=== PATIENT | male | born 1930 | race Caucasian/White ===

== ENCOUNTER 2017-06-02 15:31 | Observation (INO) | payer MEDICARE, OTHER ==
[~2017-06-02] VITALS: Ht 182.9 cm; Wt 98.8 kg
[2017-06-02] VITALS (7 sets, daily range): BP systolic 130–170; BP diastolic 90–95; PULSE 66–76; RESP 16–24; O2SAT 93–94
[2017-06-02] MEDS ORDERED: Alum-Mag Hydrox-Simeth 30 mL Suspension PO PRN (19:10)
[2017-06-02] MEDS ORDERED: Senna-Docusate 8.6-50 mg Tablet PO PRN (19:10)
[2017-06-02] MEDS ORDERED: Atropine 1 mg/10 mL (Code) Syringe IVPUSH PRN (19:10)
[2017-06-02] MEDS ORDERED: Ondansetron 2 mg/mL 2 mL Inj IVPUSH PRN (19:10)
[2017-06-02] MEDS ORDERED: Polyethylene Glycol (PEG) 17 Gm Powder PO PRN (19:10)
[2017-06-02 19:35] LABS: BASOPHILS % (AUTO) 0.6 % (0-3); EOSINOPHILS % (AUTO) 15.1 % (0-5); MONOCYTES % (AUTO) 8.1 % (4-12); Mean Corpuscular Hemoglobin 30.8 pg (27.0-35.0); Mean Corpuscular Volume 91.3 fL (81-100); NEUTROPHILS % (AUTO) 64.9 % (40-74); Platelet Count 126 bil/L (150-400)
[2017-06-02 19:56] LABS: INR 2.19 ratio
[2017-06-02 20:10] LABS: TROPONIN T 0.01 ug/L (0.0-0.011)
[2017-06-02 20:21] LABS: Magnesium 1.8 mg/dL (1.6-2.6)
--- NOTE | 2017-06-02 20:45 | PCM.HPMED ---
Subjective Date of Service Jun 02, 2017 Primary Provider: Admitting Physician: Luis Alberto Eagle MD Primary Care Physician: Nopsharona Attending Physician: Luis Alberto Eagle MD Admit Status: From the Emergency Department, 23-Hour Observation, [facility] Telemetry Chief Complaint: Chest pain. History of Present Illness: Raudel Neumann is an 86-year-old male with past medical history significant for CAD status post [place] with coronary angioplasty, hypertension, hyperlipidemia, atrial fibrillation on warfarin, obstructive sleep apnea on CPAP with oxygen, and aortic stenosis status post porcine aortic valve replacement who was a direct admit from [facility] for unstable angina. The patient reports that he awoke with chest pain yesterday morning that lasted 2-3 hours and resolved spontaneously on its own. He again woke with chest pain this morning that radiated to his left arm and left shoulder blade which prompted him to go to the emergency department. He reports that the quality of the chest pain is an ache and pressure sensation. The chest pain is substernal and not reproducible with palpation. He did not have accompanying shortness of breath, diaphoresis, nausea, vomiting, lightheadedness, dizziness, or vision changes. He reports that the chest pain resolved with 1 dose of sublingual nitroglycerin 0.4 mg and aspirin 324 mg. He was also given 1 L of normal saline , metoprolol tartrate 50 mg 1, and atorvastatin 40 mg 1. He currently does not have any chest pain. He denies headache, vision changes, shortness of breath, chest pain, abdominal pain, nausea, vomiting, fever, chills, dysuria, constipation or diarrhea. He endorses chronic cough that is at his baseline. He recently had constipation last several days which is abnormal for him. Vital signs upon admission: Temperature 37.1. Pulse 69. Respiratory rate 16. Blood pressure 167/92. Pulse ox 93% on 2 L nasal cannula. PCP is . Medical Scheduler is Dr. Alba. . Review of Systems: A comprehensive review of systems was conducted with the patient and found to be negative except as above in the History of Present Illness. . Allergies Coded Allergies: No Known Allergies (Unverified , 06/02/17) Home Medications Advair one puff twice a day. Atorvastatin 80 mg daily at bedtime. Flonase one spray intranasally every day. Ipratropium 2 puffs inhaled twice a day. Loratadine 10 mg daily as needed for allergies. Montelukast 10 mg every afternoon. Multivitamin 1 tab daily. Vitamin D3/folic acid 3775 units/1 mg 1 capsule daily. Warfarin 5 mg on Tuesday and . Warfarin 7.5 mg Tuesday, Tuesday, Tuesday, Tuesday, and Tuesday. . PMH 1. CAD status post [place] with coronary angioplasty. 2. Hypertension now off of antihypertensives due to what sounds like symptomatic orthostasis. 3. Hyperlipidemia. 4. Obstructive sleep apnea on CPAP. 5. Atrial fibrillation on warfarin. 6. COPD. 7. Aortic stenosis status post porcine aortic valve replacement. 8. Osteoarthritis. . Surgical History 1. Coronary angioplasty. 2. Bilateral cataract extraction. 3. Bilateral retinal surgery. 4. Bilateral knee replacement. . Family History Mother from Alzheimer's dementia. Father who of gunshot wound. He has 3 brothers and one sister who are all healthy. . Social History Hx Alcohol Use: Yes (1-2 glasses of red wine 2-3x/week) Additional Information The patient is 9 years. He has previously . He has 1 son and 1 daughter who are healthy. He is a retired [employer] that 23 years. 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 . Exam Vital Signs Vital Signs Label Value Date Time Patient Temperature 37.1 degrees C 06/02/171912 Temperature Source Oral 06/02/171912 Pulse 69 06/02/171912 Respiratory Rate 16 bpm 06/02/171912 Blood Pressure Assessment 167/92 (117) 06/02/171912 Location Left Arm Source Automatic Cuff Position Lying Bedside Pulse Oximetry 93 % 06/02/171914 Item Value Date Time Oxygen Delivery Method Nasal Cannula 06/02/171914 Oxygen Flow Rate 2.00 L/min 06/02/171914 Exam General: Older gentleman lying in bed and in no acute distress, hard of hearing , well-developed, well-nourished, appropriately interactive HEENT: Normocephalic, atraumatic. External ears without defect. Pupils equal, round, and reactive to light. Anicteric sclerae, moist conjunctivae, and no lid lag. Oropharynx free of erythema and cobble stoning with moist mucosa. Neck: Supple with full range of motion. No jugular venous distension. No bruits. No lymphadenopathy or thyromegaly. Cardiovascular: Irregularly irregular without murmurs, rubs, or gallops appreciated Pulmonary: Clear to auscultation bilaterally with fine crackles at right base. No wheezes, or rhonchi. Normal respiratory effort with no use of accessory muscles. Abdomen: Soft, obese, nontender, nondistended, bowel sounds present. No hepatosplenomegaly or masses appreciated. Extremities: No clubbing, cyanosis, or edema. Stasis dermatitis with small scattered bullae bilaterally. Skin: Normal temperature, turgor, and texture; no rash, ulcers, or subcutaneous nodules appreciated. Neurological: Cranial nerves grossly intact. Normal muscle strength, tone, and bulk. Reflexes, coordination, and sensory function within normal limits. No known gait impairment. Psychiatric: Normal mood and affect. Alert and oriented to person, place, and time. . Lab and Diagnostics Labs Item Value Date Time Prothrombin Time 23.8 sec H 06/02/171929 Prothromb Time International Ratio 2.19 ratio 06/02/171929 Item Value Date Time Calcium Level 8.6 mg/dL 06/02/171929 Magnesium Level 1.8 mg/dL 06/02/171929 Total Bilirubin 0.9 mg/dL 06/02/171929 Aspartate Amino Transf (AST/SGOT) 28 U/L 06/02/171929 Alanine Aminotransferase (ALT/SGPT) 22 U/L 06/02/171929 Alkaline Phosphatase 113 U/L 06/02/171929 Troponin T 0.010 ug/L 06/02/171929 Total Protein 7.4 g/dL 06/02/171929 Albumin 2.9 g/dL L 06/02/171929 Thyroid Stimulating Hormone (TSH) 2.580 uIU/mL 06/02/171929 Item Value Date Time White Blood Count 10.4 th/mm3 H 06/02/171929 Red Blood Count 5.06 mil/mm3 06/02/171929 Hemoglobin 15.6 g/dL 06/02/171929 Hematocrit 46.2 % 06/02/171929 Mean Corpuscular Volume 91.3 fL 06/02/171929 Mean Corpuscular Hemoglobin 30.8 pg 06/02/171929 Mean Corpuscular Hemoglobin Concent 33.8 % 06/02/171929 Red Cell Distribution Width 15.5 % H 06/02/171929 Platelet Count 126 jennifer/L L 06/02/171929 Neutrophils (%) (Auto) 64.9 % 06/02/171929 Lymphocytes (%) (Auto) 10.7 % L 06/02/171929 Monocytes (%) (Auto) 8.1 % 06/02/171929 Eosinophils (%) (Auto) 15.1 % H 06/02/171929 Basophils (%) (Auto) 0.6 % 06/02/171929 X-Rays, CTs and MRIs Chest x-ray performed at [facility]: IMPRESSION: No acute disease. Dictated by: Arun Martin M.D. on 06/02/2017 at 1131 . 12-lead ECG EKG performed at [facility]: Atrial fibrillation, heart rate 94, normal axis, normal R-wave progression, no pathological Q waves or acute ischemic changes such as ST elevation or depression. . Assessment & Plan Raudel Neumann is an 86-year-old male with past medical history significant for CAD status post [place] with coronary angioplasty, hypertension, hyperlipidemia, atrial fibrillation on warfarin, obstructive sleep apnea on CPAP with oxygen, and aortic stenosis status post porcine aortic valve replacement who was a direct admit from [facility] for unstable angina. 1. Acute chest pain, not present on admission. Resolved. - The patient presented with unstable angina at rest with radiation to left arm and left shoulder blade,without nausea, diaphoresis, shortness of breath, lightheadedness or dizziness. - Cardiac risk factors include: CAD status post [place] with coronary angioplasty, hypertension, hyperlipidemia, obesity, former smoker, RAMSES on CPAP, age, and gender. - EKG performed at [facility] demonstrated atrial fibrillation without acute ischemic changes. - Troponin I was 0.017 at [facility]. Initial troponin 0.010. Continue serial troponins x 3. - Chest x-ray are formed [facility] did not demonstrate any acute cardiopulmonary process, as above. - Continue aspirin 81 mg daily and atorvastatin 80 mg daily at bedtime. - Fasting lipid panel ordered for tomorrow morning. - Ordered exercise stress test with Maddison backup. - Ordered echocardiogram, pending. Chronic problems: 2. CAD status post [place] with coronary angioplasty, present on admission. Stable. - Continue aspirin 81 mg daily and atorvastatin 80 mg daily at bedtime. 3. Hypertension, present on admission. Stable. - The patient reports he is now off of antihypertensives for what sounds like symptomatic orthostasis. 4. Hyperlipidemia, present on admission. Stable. - Continue atorvastatin 80 mg daily at bedtime. 5. Obstructive sleep apnea on CPAP, present on admission. Stable. 6. Atrial fibrillation on warfarin, present on admission. Stable. - Continue warfarin with dosing per pharmacist. 7. COPD, present on admission. Stable. - Continue Advair one puff twice a day, duo nebs twice a day, and Accu nebs every 4 hours as needed for shortness of breath, . 8. Aortic stenosis status post porcine aortic valve replacement, present on admission. Stable. - Continue warfarin with dosing per pharmacist. 9. Osteoarthritis, present on admission. Stable. - Ordered acetaminophen as needed 10. Seasonal allergies, present on admission. Stable. - Continue loratadine 10 mg daily as needed for allergies, montelukast 10 mg every afternoon, and Flonase one spray intranasally every day. PRN antiemetics: Zofran and Maalox. PRN bowel regimen: Senna and MiraLAX. PRN analgesics: Tylenol. Patient is admitted under observation status with expected length of stay less than 2 midnights due to severity of presenting symptoms, risk of adverse event, and complexity of treatment plan. . VTE Prophylaxis: Theraputic Anticoag with Warfarin Resuscitation Status: CPR: Attempt Resuscitation Attending Statement The patient was seen and examined together with house staff on 06/02/2017 and I agree with the history, exam and plan as outlined in the note above. Evonne Sparrow DO Jun 02, 2017 19:09 Zaria Hough DO Jun 03, 2017 01:23 Evonne Sparrow DO Jun 02, 2017 19:09
[2017-06-02] MEDS ORDERED: MULT-666 PO (21:00)
[2017-06-02] MEDS ORDERED: VITA1CAP PO (21:00)
[2017-06-02] MEDS ORDERED: ATRINH INH (21:00)
[2017-06-02] MEDS ORDERED: LORA10CA9 PO (21:00)
[2017-06-02] MEDS ORDERED: FLUT9.9S NS (21:00)
[2017-06-02] MEDS ORDERED: WARF5TAB7 PO (21:00)
[2017-06-02] MEDS ORDERED: ADV250INH IH (21:00)
[2017-06-02] MEDS ORDERED: WARF7.5T4 PO (21:00)
[2017-06-02] MEDS ORDERED: ATOR80TA PO (21:00)
[2017-06-02] MEDS ORDERED: BRIM5DRO10 BOTH_EYES (21:00)
[2017-06-02] MEDS ORDERED: MONT10TA20 PO (21:00)
--- NOTE | 2017-06-02 21:11 | PCM.CONPHA ---
Assessment/Plan Assessment/Plan ANTICOAGULATION MANAGEMENT BY PHARMACY -INDICATION: AFIB -HOME DOSE: 5 MG SUN/THUR, 7.5 MG AOD -CONCURRENT ANTICOAGULATION: NONE -COAG TRENDS: Date INR 2.19 -[id number] SCORE: 4 PLAN: Patient is within INR goal range, will continue with home dose. Pharmacy appreciates consult and will continue to monitor. THANKS! Brigida Carolina PharmD Jun 02, 2017 21:10
[2017-06-02] MEDS ORDERED: Albuterol 2.5 mg/3 mL Inhalation Solution NEB PRN (21:55)
[2017-06-02] MEDS ORDERED: Influenza (Adult) Vaccine 0.5 mL Syringe IM ONE (23:00)
[2017-06-02] MEDS: Sodium Chloride LOK Flush 10 mL Syringe IVFLUSH SCH (23:53)
[2017-06-03] VITALS (14 sets, daily range): BP systolic 120–188; BP diastolic 68–117; PULSE 59–86; RESP 18–27; O2SAT 91–95
[2017-06-03] MEDS ORDERED: Heparin 5,000 Unit/mL Inj SUBQ SCH (00:30)
[2017-06-03 02:14] LABS: APPEARANCE,URINE CLEAR (CLEAR,HAZY); COLOR,URINE DARK YELLOW (YELLOW); OCCULT BLOOD,URINE TRACE (NEGATIVE)
[2017-06-03 02:33] LABS: BASOPHILS % (AUTO) 0.8 % (0-3); EOSINOPHILS % (AUTO) 17.7 % (0-5); MONOCYTES % (AUTO) 8.2 % (4-12); Mean Corpuscular Hemoglobin 30.6 pg (27.0-35.0); Mean Corpuscular Volume 90.4 fL (81-100); NEUTROPHILS % (AUTO) 61.3 % (40-74); Platelet Count 145 bil/L (150-400)
[2017-06-03 02:49] LABS: INR 1.89 ratio
[2017-06-03 04:15] LABS: Creatine Kinase 80 U/L (21-232)
[2017-06-03] MEDS ORDERED: Labetalol 5 mg/mL 20 mL Inj IV ONE (04:20)
[2017-06-03] MEDS ORDERED: Enalaprilat 1.25 mg/mL 2 mL Inj IVPUSH ONE (07:50)
[2017-06-03] MEDS: Albuterol-Ipratropium 3 mL Inhalation Solution NEB SCH ×2 (08:30→20:30)
[2017-06-03] MEDS ORDERED: Influenza (Adult) Vaccine 0.5 mL Syringe IM ONE (08:30)
[2017-06-03] MEDS: Fluticasone 0.05% 15 Spray/2 Gm 16 Gm Nasal Spray NASAL SCH (08:42)
[2017-06-03] MEDS: Sodium Chloride LOK Flush 10 mL Syringe IVFLUSH SCH ×3 (08:42→23:43)
[2017-06-03] MEDS: Brimonidine 0.2% 5 mL Ophthalmic Solution BOTH_EYES SCH ×2 (08:42→21:15)
[2017-06-03 08:55] LABS: Creatine Kinase 75 U/L (21-232)
--- NOTE | 2017-06-03 10:58 | PCM.PHAPRO ---
Progress Date of Service: Jun 03, 2017 Warfarin dosing Date Jun 03-May INR 2.19 1.89 INR change -0.3 Warf Dose 5 MG 7.5MG Edel Christensen PharmD Jun 03, 2017 10:58
[2017-06-03] MEDS: Fluticasone-Salmererol 250-50 Inhaler INHALATION SCH ×2 (12:25→21:15)
--- NOTE | 2017-06-03 15:13 | PCM.PNMED ---
Subjective Date of Service Jun 03, 2017 Subjective Today that patient states that he is better compared to admission, but still feels some degree of chest pain and tightness. He states that it is down about 30-40% compared to admission but remains quite uncomfortable. He has not other complaints at this time beyond back pain from the hospital bed. No significant overnight events. Exam Vital Signs Vital Sign - Last Date Time Temp Pulse Resp B/P Pulse Ox O2 Delivery O2 Flow Rate FiO2 06/03/17 12:33 36.5 63 20 91 Nasal Cannula 2.00 Intake and Output 06/02/17 06/02/17 06/03/17 Cumulative From/Thru 14:58 22:58 06:58 06/02/17 19:17 - 06/03/17 05:34 Intake Total 200 ml 200 ml Output Total 500 ml 500 ml Balance -300 ml -300 ml Intake Oral 200 ml 200 ml Output Urine Total 500 ml 500 ml # Voids 1 1 # Bowel Movements 1 1 Exam Gen: A/O x3 pleasant cooperative elderly gentleman in mild acute distress secondary to chest tightness Neck: Supple, non tender, ROM appropriate for age, no JVD HEENT: Lips slightly dusky to blue colored, PERRL, EOMI, no scleral icterus CV: RRR, soft systolic murmur best heard at right sternal border, no rubs or gallops Abd: Soft, non tender, no rebound guarding or masses Extr: No clubbing or cyanosis in extremities, mild BL LE edema Neuro: CN 2-12 grossly intact, no focal neurologic deficit Psych: Pleasant and appropriate mood and effect . IVs and Medications Medications Reviewed: Medications were reviewed in detail Lab and Diagnostics Item Value Date Time Red Blood Count 5.23 mil/mm3 06/03/17224 Mean Corpuscular Volume 90.4 fL 06/03/17224 Mean Corpuscular Hemoglobin 30.6 pg 06/03/17224 Mean Corpuscular Hemoglobin Concent 33.8 % 06/03/17224 Red Cell Distribution Width 15.6 % H 06/03/17224 Neutrophils (%) (Auto) 61.3 % 06/03/17224 Lymphocytes (%) (Auto) 11.5 % L 06/03/17224 Monocytes (%) (Auto) 8.2 % 06/03/17224 Eosinophils (%) (Auto) 17.7 % H 06/03/17224 Basophils (%) (Auto) 0.8 % 06/03/17224 Estimat Glomerular Filtration Rate 76 mL/min 06/03/17224 Calcium Level 8.8 mg/dL 06/03/17224 Total Creatine Kinase 75 U/L 06/03/17805 Creatine Kinase MB 2.9 ng/mL 06/03/17805 Troponin T 0.010 ug/L 06/03/17 08 Triglycerides Level 98 mg/dL 06/03/17224 Cholesterol Level 104 mg/dL 06/03/17224 LDL Cholesterol, Calculated 48.400 mg/dL 06/03/17224 VLDL Cholesterol 19.600 mg/dL 06/03/17224 HDL Cholesterol 36 mg/dL 06/03/17224 Cholesterol/HDL Ratio 2.89 06/03/17224 Result Diagram: 06/03/1722406/03/17224 Microbiology Urine culture pending X-Rays, CTs and MRIs Chest x-ray performed at [facility]: IMPRESSION: No acute disease. Dictated by: Arun Martin M.D. on 06/02/2017 at 1131 . 12-lead ECG EKG performed at [facility]: Atrial fibrillation, heart rate 94, normal axis, normal R-wave progression, no pathological Q waves or acute ischemic changes such as ST elevation or depression. . Assessment & Plan Raudel Neumann is an 86-year-old male with past medical history significant for CAD status post [place] with coronary angioplasty, hypertension, hyperlipidemia, atrial fibrillation on warfarin, obstructive sleep apnea on CPAP with oxygen, and aortic stenosis status post porcine aortic valve replacement who was a direct admit from [facility] for unstable angina. He subsequently has had negative serial Trop, and will undergo a stress test to evaluate if further intervention will be necessary. Acute chest pain, not present on admission. Improved - The patient presented with unstable angina at rest with radiation to left arm and left shoulder blade,without nausea, diaphoresis, shortness of breath, lightheadedness or dizziness. - Cardiac risk factors include: CAD status post [place] with coronary angioplasty, hypertension, hyperlipidemia, obesity, former smoker, RAMSES on CPAP, age, and gender. - EKG performed at [facility] demonstrated atrial fibrillation without acute ischemic changes. - Serial troponins x 3 negative - Chest x-ray are formed [facility] did not demonstrate any acute cardiopulmonary process, as above. - Continue aspirin 81 mg daily and atorvastatin 80 mg daily at bedtime. - Fasting lipid panel unremarkable - Ordered exercise stress test with Maddison backup. Chronic problems: CAD status post [place] with coronary angioplasty, present on admission. Stable. - Continue aspirin 81 mg daily and atorvastatin 80 mg daily at bedtime. Hypertension, present on admission. Stable. - The patient reports he is now off of antihypertensives for what sounds like symptomatic orthostasis. - Given single dose of Vasotec for HTN - Will re-evaluated need for corrective meds after stress Hyperlipidemia, present on admission. Stable. - Continue atorvastatin 80 mg daily at bedtime. Obstructive sleep apnea on CPAP, present on admission. Stable. - Continue to encourage use of CPAP Atrial fibrillation on warfarin, present on admission. Stable. - Continue warfarin with dosing per pharmacist. COPD, present on admission. Stable. - Continue Advair one puff twice a day, duo nebs twice a day, and Accu nebs every 4 hours as needed for shortness of breath, . Aortic stenosis status post porcine aortic valve replacement, present on admission. Stable. - Continue warfarin with dosing per pharmacist. Osteoarthritis, present on admission. Stable. - Ordered acetaminophen as needed Seasonal allergies, present on admission. Stable. - Continue loratadine 10 mg daily as needed for allergies, montelukast 10 mg every afternoon, and Flonase one spray intranasally every day. Disposition: Patient will likely be able to DC home tomorrow pending results of his Stress test, should there prove to be a correctible defect he will likely DC on 06/05/17 following cath procedure. Pain Evaluation: Adequate Pain Control GI Prophylaxis: Not indicated VTE Prophylaxis: Theraputic Anticoag with Warfarin Resuscitation Status: CPR: Attempt Resuscitation Time spent 20 minutes Attending Statement Patient has been seen and examined by myself with medical research associate and agree with above history, physical, assessment and plan. Tello Alvarez DO Jun 03, 2017 15:13 Lana Landeros MD Jun 04, 2017 07:01
[2017-06-03] MEDS ORDERED: Warfarin 5 MG, Warfarin 2.5 MG PO ONE ×2 (17:00)
--- NOTE | 2017-06-03 19:24 | DRSVH ---
[facility] [address] [place] [address] Echocardiogram Report Name: ЕЛЕНА PATEL Date: 06/03 Height: 72 in Hospital Exam Location: [facility] Weight: 220 lb Gender: Male BSA: 2.2 m2 : 1930 Age: 86 yrs BP: 177/88 mm Hg Reason For Study: Chest Pain Ordering Physician: HOSPITALIST [facility] Performed By: Lauren Soler Referring Physician: Bernice Bairdist Interpretation Summary Afib with controlled ventricular response. Normal LV size; mild concentric LVH; normal wall motion and LV systolic function. EF is 50-55%. There is severe RV enlargement with mild-moderately reduced RV function. Estimated PA systolic pressure is 54-59 mm Hg assuming RA pressure of 15-20 mm Hg. There is moderate MAC with mild associated MR. Aortic valve is replaced with a stented bioprosthesis, which is functionibng normally. There is no prior study available for comparison. Procedure: A two-dimensional transthoracic echocardiogram with color flow and Doppler was performed. The study quality was technically adequate. There is no prior echocardiogram noted for this patient. Most of the acoustic windows were suboptimal, but the best imaging was obtained from the parasternal window. The patient was in atrial fibrillation with controlled ventricular rate during the exam. Left Ventricle: The left ventricle is normal in size. Left ventricular wall thickness is mildly increased. The ejection fraction is estimated to be 50- 55%. Diastolic function could not be accurately assessed due to atrial fibrillation. Right Ventricle: The right ventricle is moderate to severely dilated. Right ventricular systolic function is mild to moderately reduced. Atria: Both atria are severely dilated. (visual estimate, unable to accurately measure due to suboptimal imaging window). The interatrial septum is intact with no evidence for an atrial septal defect. Mitral Valve: The mitral valve leaflets are slightly calcified. There is mild to moderate mitral annular calcification. There is mild mitral regurgitation. Aortic Valve: There is a bioprosthetic aortic valve. The aortic valve mean gradient is 6 mmHg. The peak aortic velocity is 1.69 m/sec. There is mild aortic regurgitation. Tricuspid Valve: The tricuspid valve leaflets are thin and pliable. There is moderate to severe tricuspid regurgitation. The right ventricular systolic pressure is estimated at 54 mmHg assuming a right atrial pressure of 15 mm Hg. Pulmonic Valve: The pulmonic valve is not well seen, but is grossly normal. There is mild pulmonic regurgitation. Great Vessels: The aortic root is normal size. The ascending aorta is mild- moderately enlarged. Pericardium/ Pleura There is no pericardial effusion. There is an anterior echo-free space consistent with a fat pad. There is no pleural effusion. MMode/2D Measurements & Calculations LVIDd: 4.9 cm IVC diam: 3.2 cm LVIDs: 3.4 cm FS: 29.3 % IVSd: 1.3 cm LVPWd: 1.3 cm LVOT diam: 2.1 cm LV sandoval. diameter/BSA (cm/m^2): 2.2 asc Aorta Diam: 4.3 cm LV sys. diameter/BSA (cm/m^2): 1.5 Doppler Measurements & Calculations Ao V2 max: 169.3 cm/sec TR max rogelio: 266.3 cm/sec Ao max P.5 mmHg TR max P.4 mmHg Ao mean P.9 mmHg PA V2 max: 62.3 cm/sec LVOT Max Rogelio: 80.0 cm/sec PA mean P.78 mmHg NATHALIE(I,D): 1.8 cm sev ratio: 0.52 Ao V2 mean: 112.4 cm/sec LV V1 max P.6 mmHg Ao V2 VTI: 32.8 cm LV V1 VTI: 16.9 cm NATHALIE(V,D): 1.7 cm2 PA V2 mean: 42.1 cm/sec NATHALIE indexed to BSA (cm^2/m^2): 0.81 PA pr(Accel): 35.4 mmHg Reading Physician:07:23 PM
--- NOTE | 2017-06-03 21:03 | DRSVH ---
PROCEDURE: CT ANGIO CHEST PULMONARY EMBOLISM ([id number]) INDICATIONS: chest pain,large RV on echo TECHNIQUE: After the administration of intravenous contrast, 2 mm thick sections acquired from the pulmonary api zeeshan to the posterior costophrenic angles. 3-dimensional maximum intensity projection (MIP) coronal a nd sagittal reformats were then acquired through the thorax. For radiation dose reduction, the follo wing was used: automated exposure control, adjustment of mA and/or kV according to patient size. COMPARISON: None. FINDINGS: Image quality: Excellent. Pulmonary arteries: Pulmonary arteries are normal in size, and demonstrate no intraluminal filling d efects to suggest central pulmonary embolism. Lungs and pleura: Scattered atelectasis and scarring. 4 mm nodule seen in the right lung base on imag e 34. Additional 1-2 mm nodule seen in the right middle lobe on image 34. Trace bilateral pleural eff usions with adjacent atelectasis. No pneumothorax. Central and peripheral airways are patent. Bibasi lar interlobular septal thickening and scattered groundglass opacities. Mediastinum: Heart size is enlarged, without pericardial effusion. Coronary artery calcifications. Numerous shotty and mildly enlarged bilateral hilar and mediastinal lymph nodes.. Thoracic aorta is normal in caliber and enhancement. Esophagus is normal in caliber, without hiatal hernia. Bones and chest wall: No suspicious bony lesions. Age-indeterminate mild mid thoracic compression fr acture. Thyroid gland negative. No axillary or supraclavicular adenopathy. Abdomen: Incidental cholelithiasis is noted. There is reflux of contrast into the hepatic veins sugge sting decreased cardiac output. IMPRESSION: No evidence of pulmonary embolism. Cardiomegaly, and reflux of contrast material into the hepatic veins suggesting decreased cardiac out put. Numerous shotty and mildly enlarged bilateral hilar and mediastinal lymph nodes, technically nonspeci fic finding and recommend clinical correlation. Trace bilateral pleural effusions with adjacent atelectasis. Less than 5 mm pulmonary nodules in the right lung base. Early metastatic or malignant possibilities cannot be excluded and therefore recommend followup noncontrast chest CT in 6 months. Incidental cholelithiasis. Interlobular septal thickening and mild ground glass opacities within the lung bases raising possibil ity of early pulmonary edema. Please correlate clinically Dictated by: Arun Martin M.D. on 06/03/2017 at 20:47 Approved by: Arun Martin M.D. on 06/03/2017 at 21:02
--- NOTE | 2017-06-04 01:28 | DRSVH ---
PROCEDURE: 1 DAY PHARMACOLOGICAL STRESS TEST INDICATIONS: CHEST PAIN COMPARISON: None. Radiopharmaceutical: Rest dose 8.58 mCi of technetium 99 tetrofosmin Stress dose 24.7 mCi of technetium 99 tetrofosmin Patient presentation: Patient is a 86-year-old man with history of all aortic valve replacement, cad, chronic A. fib and chest pain. FINDINGS: Pharmacologic stress test: Following informed consent Lexiscan was infused per protocol. Patient was in A. fib with slow ventricular response and incomplete right bundle branch block. Study was characte rized by occasional PVCs. There were no significant ST segment changes. Raw data: Normal myocardial tracer uptake. Lung heart ratio is normal. Quantitative gated SPECT: Study could not be properly gated due to underlying atrial fibrillation. Myocardial perfusion imaging: There is no evidence of ischemia or prior infarct. IMPRESSION: Low risk pharmacologic stress test with myocardial perfusion imaging. No ischemia or prior infarct. Chronic A. fib. There is no prior study available for comparison. Dictated by: Elizabeth Garcia M.D. on 06/04/2017 at 1:22 Approved by: Elizabeth Garcia M.D. on 06/04/2017 at 1:26
[2017-06-04 03:21] VITALS: BP 161/100; PULSE 75; RESP 18; O2SAT 92
[2017-06-04 03:31] LABS: BASOPHILS % (AUTO) 0.7 % (0-3); MONOCYTES % (AUTO) 7.8 % (4-12); Mean Corpuscular Hemoglobin 30.6 pg (27.0-35.0); Mean Corpuscular Volume 91.5 fL (81-100); NEUTROPHILS % (AUTO) 63.1 % (40-74); Platelet Count 137 bil/L (150-400)
[2017-06-04 03:44] LABS: INR 1.73 ratio
[2017-06-04 03:52] LABS: Magnesium 1.8 mg/dL (1.6-2.6); Phosphorus 3.8 mg/dL (2.5-4.9)
[2017-06-04 03:59] VITALS: BP 130/75; PULSE 65; RESP 16; O2SAT 94
[2017-06-04 05:29] VITALS: PULSE 65
--- NOTE | 2017-06-04 07:22 | PCM.PHAPRO ---
Progress Warfarin Management by Pharmacy: -Indication: afib -Inr Goal: 2-3 -Home Dose: 5mg on SuTh, 7.5mg all other days -[id number] Score: 4 -Drug Interactions: none noted -Concurrent Anticoagulation: none -H/H= 15.4/46.1 Platelets= 137 -Coagulation Trends: Jun 03-Jun 04-May 2.19 1.89 1.73 -0.3 -0.16 5 MG 7.5MG 7.5MG -PLAN: will continue with home dose of warfarin 7.5mg this evening and follow Erika Fitzpatrick [facility] Jun 04, 2017 07:22
[2017-06-04 07:47] VITALS: BP 156/89; PULSE 65; RESP 16; O2SAT 96
--- NOTE | 2017-06-04 09:21 | PCM.DIMED ---
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 Follow-up with cardiology as they have recommended. Lana Landeros MD Jun 04, 2017 09:21
[2017-06-04] MEDS ORDERED: NITR0.4T SL (09:23)
[2017-06-04] MEDS: Fluticasone 0.05% 15 Spray/2 Gm 16 Gm Nasal Spray NASAL SCH (09:25)
[2017-06-04] MEDS: Sodium Chloride LOK Flush 10 mL Syringe IVFLUSH SCH (09:25)
[2017-06-04] MEDS: Brimonidine 0.2% 5 mL Ophthalmic Solution BOTH_EYES SCH (09:26)
[2017-06-04] MEDS: Fluticasone-Salmererol 250-50 Inhaler INHALATION SCH (09:26)
--- NOTE | 2017-06-04 09:29 | PCM.DC.MED ---
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 Dictated by: Arun Martin M.D. on 06/02/2017 at 1131 .PROCEDURE: CT ANGIO CHEST PULMONARY EMBOLISM ([id number]) INDICATIONS: chest pain,large RV on echo TECHNIQUE: After the administration of intravenous contrast, 2 mm thick sections acquired from the pulmonary apices to the posterior costophrenic angles. 3-dimensional maximum intensity projection (MIP) coronal and sagittal reformats were then acquired through the thorax. For radiation dose reduction, the following was used: automated exposure control, adjustment of mA and/or kV according to patient size. COMPARISON: None. FINDINGS: Image quality: Excellent. Pulmonary arteries: Pulmonary arteries are normal in size, and demonstrate no intraluminal filling defects to suggest central pulmonary embolism. Lungs and pleura: Scattered atelectasis and scarring. 4 mm nodule seen in the right lung base on image 34. Additional 1-2 mm nodule seen in the right middle lobe on image 34. Trace bilateral pleural effusions with adjacent atelectasis. No pneumothorax. Central and peripheral airways are patent. Bibasilar interlobular septal thickening and scattered groundglass opacities. Mediastinum: Heart size is enlarged, without pericardial effusion. Coronary artery calcifications. Numerous shotty and mildly enlarged bilateral hilar and mediastinal lymph nodes.. Thoracic aorta is normal in caliber and enhancement. Esophagus is normal in caliber, without hiatal hernia. Bones and chest wall: No suspicious bony lesions. Age-indeterminate mild mid thoracic compression fracture. Thyroid gland negative. No axillary or supraclavicular adenopathy. Abdomen: Incidental cholelithiasis is noted. There is reflux of contrast into the hepatic veins suggesting decreased cardiac output. IMPRESSION: No evidence of pulmonary embolism. Cardiomegaly, and reflux of contrast material into the hepatic veins suggesting decreased cardiac output. Numerous shotty and mildly enlarged bilateral hilar and mediastinal lymph nodes , technically nonspecific finding and recommend clinical correlation. Trace bilateral pleural effusions with adjacent atelectasis. Less than 5 mm pulmonary nodules in the right lung base. Early metastatic or malignant possibilities cannot be excluded and therefore recommend followup noncontrast chest CT in 6 months. Incidental cholelithiasis. Interlobular septal thickening and mild ground glass opacities within the lung bases raising possibility of early pulmonary edema. Please correlate clinically Dictated by: Arun Martin M.D. on 06/03/2017 at 20:47 Approved by: Arun Martin M.D. on 06/03/2017 at 21:02 ECG 12 Lead EKG performed at [facility]: Atrial fibrillation, heart rate 94, normal axis, normal R-wave progression, no pathological Q waves or acute ischemic changes such as ST elevation or depression. . Brief History Елена Neumann is an 86-year-old male with past medical history significant for CAD status post MT with coronary angioplasty, hypertension, hyperlipidemia, atrial fibrillation on warfarin, obstructive sleep apnea on CPAP with oxygen, and aortic stenosis status post porcine aortic valve replacement who was a direct admit from [facility] for unstable angina. The patient reports that he awoke with chest pain yesterday morning that lasted 2-3 hours and resolved spontaneously on its own. He again woke with chest pain this morning that radiated to his left arm and left shoulder blade which prompted him to go to the emergency department. He reports that the quality of the chest pain is an ache and pressure sensation. The chest pain is substernal and not reproducible with palpation. He did not have accompanying shortness of breath, diaphoresis, nausea, vomiting, lightheadedness, dizziness, or vision changes. He reports that the chest pain resolved with 1 dose of sublingual nitroglycerin 0.4 mg and aspirin 324 mg. He was also given 1 L of normal saline , metoprolol tartrate 50 mg 1, and atorvastatin 40 mg 1. He currently does not have any chest pain. He denies headache, vision changes, shortness of breath, chest pain, abdominal pain, nausea, vomiting, fever, chills, dysuria, constipation or diarrhea. He endorses chronic cough that is at his baseline. He recently had constipation last several days which is abnormal for him. Vital signs upon admission: Temperature 37.1. Pulse 69. Respiratory rate 16. Blood pressure 167/92. Pulse ox 93% on 2 L nasal cannula. PCP is . Rhit is Dr. Alba. . Hospital Course Елена Neumann is an 86-year-old male with past medical history significant for CAD status post MT with coronary angioplasty, hypertension, hyperlipidemia, atrial fibrillation on warfarin, obstructive sleep apnea on CPAP with oxygen, and aortic stenosis status post porcine aortic valve replacement who was a direct admit from [facility] for unstable angina. He subsequently has had negative serial Trop, and will undergo a stress test to evaluate if further intervention will be necessary. Acute chest pain, not present on admission. Improved - The patient presented with unstable angina at rest with radiation to left arm and left shoulder blade,without nausea, diaphoresis, shortness of breath, lightheadedness or dizziness. - Cardiac risk factors include: CAD status post MT with coronary angioplasty, hypertension, hyperlipidemia, obesity, former smoker, RAMSES on CPAP, age, and gender. - EKG performed at [facility] demonstrated atrial fibrillation without acute ischemic changes. - Serial troponins x 3 negative - Chest x-ray are formed [facility] did not demonstrate any acute cardiopulmonary process, as above. - Continue aspirin 81 mg daily and atorvastatin 80 mg daily at bedtime. -See nuclear stress test which was low risk and echocardiogram report above. There is enlarged right ventricle which CTA of chest was done and did not reveal any PE however there was less than 5 mm pulmonary nodules lower lobe and will need his repeat CT scan in 6 months Chronic problems: CAD status post MT with coronary angioplasty, present on admission. Stable. - Continue aspirin 81 mg daily and atorvastatin 80 mg daily at bedtime. Hypertension, present on admission. Stable. - The patient reports he is now off of antihypertensives for what sounds like symptomatic orthostasis. - Given single dose of Vasotec for HTN - Will re-evaluated need for corrective meds after stress Hyperlipidemia, present on admission. Stable. - Continue atorvastatin 80 mg daily at bedtime. Obstructive sleep apnea on CPAP, present on admission. Stable. - Continue to encourage use of CPAP Atrial fibrillation on warfarin, present on admission. Stable. - Continue warfarin with dosing per pharmacist. COPD, present on admission. Stable. - Continue Advair one puff twice a day, duo nebs twice a day, and Accu nebs every 4 hours as needed for shortness of breath, . -Respiratory is to assess patient prior to discharge for need for supplemental O2 at home Aortic stenosis status post porcine aortic valve replacement, present on admission. Stable. - Continue warfarin with dosing per pharmacist. Osteoarthritis, present on admission. Stable. - Ordered acetaminophen as needed Seasonal allergies, present on admission. Stable. - Continue loratadine 10 mg daily as needed for allergies, montelukast 10 mg every afternoon, and Flonase one spray intranasally every day. Disposition: Patient will likely be able to DC home tomorrow pending results of his Stress test, should there prove to be a correctible defect he will likely DC on 06/05/17 following cath procedure. Exam Vital Signs (Last) Date Time Temp Pulse Resp B/P Pulse Ox O2 Delivery O2 Flow Rate FiO2 06/04/17 07:47 36.4 65 16 156/89 96 Nasal Cannula 3.00 Exam Constitutional: Elderly male in no acute distress Head: Normocephalic atraumatic Chest: Clear to auscultation Cor: Regular rate and rhythm S1-S2 with 2/6 systolic ejection murmur Abdomen: Soft nontender bowel sounds present Extremities: Trace bilateral pedal edema Neuro: Alert and oriented 3, motor strength is intact bilaterally Psych: Mood and affect are appropriate Skin: No rashes Test 06/02/17 19:30 06/02/17 19:31 06/03/17 01:20 06/03/17 01:44 Hemoglobin A1c 5.9% (4.8-5.6) Thyroid Stimulating Hormone (TSH) 2.580uIU/mL (0.450-4.500) Hold Ruiz Top Tube Received (Received) Urine Color Dark yellow (YELLOW) Urine Appearance Clear (CLEAR,HAZY) Urine pH 7.0 (5.0-8.0) Urine Specific [place] 1.020 (1.003-1.035) Urine Protein 100mg/dL (NEG,TRACE) Urine Glucose (UA) Negativemg/dL (NEGATIVE) Urine Ketones Negativemg/dL (NEGATIVE) Urine Occult Blood Trace (NEGATIVE) Urine Nitrite Negative (NEGATIVE) Urine Bilirubin Negative (NEGATIVE) Urine Urobilinogen 1.0mg/dL (NORMAL) Urine Leukocyte Esterase Small (NEGATIVE) Urine RBC 0-2/hpf (0-2) Urine WBC 11-50/hpf (0-5) Urine Epithelial Cells Few/hpf (NONE-MOD) Urine Crystals None seen (NONE SEEN) Urine Bacteria Moderate/hpf (NONE-FEW) Urine Hyaline Casts Occasional/lpf (NONE) Urine Granular Casts None seen (NONE SEEN) Urine Waxy Casts None seen (NONE SEEN) Urine Red Blood Cell Casts None seen (NONE SEEN) Urine White Blood Cell Casts None seen (NONE SEEN) Urine Mucus Present (None Seen) Urine Trichomonas None seen (NONE SEEN) Urine Yeast None (NONE SEEN) Urinalysis Comment None Urine Culture Reflexed Indicated Hold Urine Received (Received) Test 06/03/17 02:25 06/03/17 08:06 06/04/17 03:05 Triglycerides Level 98mg/dL (0-149) Cholesterol Level 104mg/dL (100-199) LDL Cholesterol, Calculated 48.400mg/dL (0-99) VLDL Cholesterol 19.600mg/dL HDL Cholesterol 36mg/dL (>39) Cholesterol/HDL Ratio 2.89 (0.0-4.4) Total Creatine Kinase 75U/L (21-232) Creatine Kinase MB 2.9ng/mL (0.0-10.4) Creatine Kinase MB % % (0.0-5.0) Troponin T 0.010ug/L (0.0-0.011) White Blood Count 9.9th/mm3 (3.8-10.1) Red Blood Count 5.04mil/mm3 (4.40-5.80) Hemoglobin 15.4g/dL (13.8-17.2) Hematocrit 46.1% (41.0-50.0) Mean Corpuscular Volume 91.5fL (81-100) Mean Corpuscular Hemoglobin 30.6pg (27.0-35.0) Mean Corpuscular Hemoglobin Concent 33.4% (32.0-37.0) Red Cell Distribution Width 15.6% (12.3-15.4) Platelet Count 137bil/L (150-400) Neutrophils (%) (Auto) 63.1% (40-74) Lymphocytes (%) (Auto) 10.8% (14-46) Monocytes (%) (Auto) 7.8% (4-12) Eosinophils (%) (Auto) 17.0% (0-5) Basophils (%) (Auto) 0.7% (0-3) Prothrombin Time 18.7sec (8.1-12.5) Prothromb Time International Ratio 1.73ratio Sodium Level 135mEq/L (134-144) Potassium Level 3.8mEq/L (3.5-5.2) Chloride Level 100mEq/L (97-108) Carbon Dioxide Level 23mmol/L (18-29) Blood Urea Nitrogen 21mg/dL (8-27) Creatinine 1.12mg/dL (0.76-1.27) Estimat Glomerular Filtration Rate 66mL/min (>59) Glucose Level 89mg/dL (60-99) Calcium Level 8.4mg/dL (8.5-10.1) Phosphorus Level 3.8mg/dL (2.5-4.9) Magnesium Level 1.8mg/dL (1.6-2.6) Total Bilirubin 0.6mg/dL (0.0-1.2) Aspartate Amino Transf (AST/SGOT) 32U/L (0-50) Alanine Aminotransferase (ALT/SGPT) 24U/L (0-44) Alkaline Phosphatase 106U/L (25-160) Total Protein 7.0g/dL (6.4-8.4) Albumin 2.7g/dL (3.4-5.0) Microbiology Results RUN DATE: 06/04/17 [facility] LIVE PAGE 1 RUN TIME: 741 Specimen Inquiry PHYSICIAN Name: ЕЛЕНА PATEL Age/Sex: 86/M Attend Dr: Lana Landeros MD Acct: [id number] Unit: [id number] Status: ADM [place] Location: [facility] 2018-09 Re06/02/17 Disch: Specimen: [id number] Collected: 06/03/17 Status: COMP Req#: [id number] Received: 06/03/17 Source: URINE CC Sp Desc : PP Subm Dr: Luis Alberto Eagle MD Ordered: URINE CULT Procedure Result Verified Site Microbiology OMARI CULT URINE Final 06/04/17 Organism 1 MIXED UROGENITAL JANE U COLONY COUNT/QUANTITY 25-50,000 CFU/ml Discharge Medications Discharge Medications Atorvastatin (Lipitor) 80 Mg Tablet 80 MG PO HS (Reported) Brimonidine Tartrate (Alphagan P) 5 Ml Drops 1 DROP BOTH_EYES BID (Reported) Fluticasone Propionate (Flonase Allergy Relief) 50 Mcg/Actuation [place].susp 1 SPRAY NS DAILY (Reported) Fluticasone/Salmeterol (Advair 250-50 Diskus) 60 Puff/Inh Disk 1 PUFF IH BID ( Reported) Ipratropium [place] (Atrovent HFA) 200 Puff/12.9 Gm Inhaler 2 PUFF INH BID ( Reported) Montelukast (Singulair) 10 Mg Tablet 10 MG PO HS (Reported) Multivitamin (Once Daily) 1 Each Tablet 1 EACH PO DAILY (Reported) Vitamin D3/Folic Acid (Ciferex 3,775 Unit-1 mg Cap) 3,775 Unit-1 Mg Capsule 1 EACH PO DAILY (Reported) Warfarin Sodium (Warfarin Sodium) 5 Mg Tablet 5 MG PO TUESDAY/TUESDAY (Reported ) Warfarin Sodium (Warfarin Sodium) 7.5 Mg Tablet 7.5 MG PO MON,TUE,WED,TUE,SAT ( Reported) As needed Loratadine (Loratadine) 10 Mg Capsule 10 MG PO DAILY PRN PRN ALLERGIES (Reported ) Nitroglycerin SL (Nitrostat) 0.4 Mg Tab.subl 0.4 MG SL Q5MIN PRN PRN For Chest Pain Prescribed by: LANA LANDEROS MD Followup Plan Disposition: Home Follow-up plan Patient has follow-up with his primary care provider out of [facility] in 3 -5 days sooner if problems. Follow-up with cardiology as they have recommended. Discharge Diet: Low fat, Low Sodium, Heart Healthy Discharge Activity: Other (progress as tolerated) Time spent 60 minute Lana Landeros MD Jun 04, 2017 09:29
[2017-06-04] MEDS ORDERED: Warfarin 2.5 MG, Warfarin 5 MG PO SCH ×2 (17:00)
== END 2017-06-04 13:40 | disposition home or self-care (01) ==
LOC: INTOOBSV 18:59 → PCC 18:59
PROVIDERS: ADMIT Internal Medicine; ATTEND Specialist
DX: R07.9 Chest pain, unspecified (principal); I25.10 Atherosclerotic heart disease of native coronary artery without angina pectoris; Z98.61 Coronary angioplasty status; I10 Essential (primary) hypertension; I25.2 Old myocardial infarction; E78.5 Hyperlipidemia, unspecified; I48.2 Chronic atrial fibrillation; G47.33 Obstructive sleep apnea (adult) (pediatric); Z79.01 Long term (current) use of anticoagulants; J44.9 Chronic obstructive pulmonary disease, unspecified; Z95.3 Presence of xenogenic heart valve; M19.90 Unspecified osteoarthritis, unspecified site; J30.2 Other seasonal allergic rhinitis; Z87.891 Personal history of nicotine dependence; E66.9 Obesity, unspecified; Z23 Encounter for immunization